=== PATIENT | female | born 1965 | race Caucasian/White ===

== ENCOUNTER 2016-08-06 16:40 | Inpatient (IN) | payer OTHER ==
[~2016-08-06] VITALS: Ht 160 cm; Wt 58.6 kg
[~2016-08-06 16:40] MED LIST: ADDERALL10 MG PO; ADVAIR HFA120 INHALA IH; AMLODIPINE BESY10 MG PO; AMLODIPINE BESYL5 MG PO; AMPHETAMINE SALT5 MG PO; ANAPROX DS550 M1 PO; ANTIHYPERTENSIVE PO; ATARAX,VISTARIL25 MG PO; ATARAX,VISTARIL50 MG PO; ATIVAN1 MG PO; AZITHROMYCIN250 MG1 PO; Aspirin E.C. PO; BACTRIM,SEPT1 TABLET PO; BP MEDICINE; BUSPAR10 MG PO; BUSPAR5 MG PO; CARBAMAZEPINE200 M1 PO; CIPRO250 MG PO; CITALOPRAM HBR10 MG PO; CLONAZEPAM0.5 MG PO; CYMBALTA30 MG PO; CYMBALTA60 MG PO; DOCUSATE SODIU100 MG PO; DOXEPIN HCL75 MG PO; ELIQUIS5 MG PO; ERGOCALCIF50000 UNIT PO; FLEXERIL10 MG PO; FLUOXETINE HCL10 MG PO; GABAPENTIN100 MG PO; GLIMEPIRIDE4 MG PO; Glucophage PO; HYDROCODON-ACE1 EAC7 PO; HYDROXYZINE HCL50 MG PO; KEFLEX500 MG PO; KLONOPIN0.5 M1 PO; KLONOPIN1 MG PO; KlonoPIN PO; LEVAQUIN500 MG PO; LIDOCAINE20 MG/1 M5 PO; LODINE200 MG PO; LORAZEPAM1 MG PO; MEDROL DOSEPAK4 MG PO; METFORMIN HCL500 MG PO; METOPROLOL SUCC25 MG PO; MIRTAZAPINE15 MG PO; MIRTAZAPINE45 MG PO; MYCOSTATIN 100,60 ML PO; NAPROSYN375 MG PO; NAPROSYN500 MG PO; NEURONTIN100 MG PO; NITROFURANTOIN100 M3 PO; NOHOMEMEDS; PANTOPRAZOLE SO40 MG PO; PAROXETINE HCL10 MG PO; PAROXETINE HCL40 MG PO; PAXIL20 MG PO; PAXIL30 MG PO; PAXIL40 MG PO; PERCOCET 5/31 TABLET PO; PREDNISONE50 MG PO; PRIMIDONE50 MG PO; PROAIR HFA8.5 GM IH; Paxil PO; Percocet 5/325,Endoc PO; Pravachol PO; Proventil,Ventolin H IH; QUETIAPINE FUM100 MG PO; QUETIAPINE FUMA25 MG PO; REMERON15 M2 PO; ROBITUSSIN AC,T10 ML PO; SEROQUEL XR150 MG PO; SEROQUEL100 MG PO; SEROQUEL200 MG PO; SEROquel PO; SIMVASTATIN40 MG PO; SINEQUAN25 MG PO; SPIRIVA RESPIMAT4 GM IH; THERAGRAN1 TABLET PO; TRAMADOL HCL50 MG PO; TRAZODONE HCL150 MG PO; Tears Naturale II,Ar BOTH EYES; VENLAFAXINE HCL75 M3 PO; VENTOLIN HFA18 GM IH; VICODIN,LORT1 TABLET PO; VITAMIN B-1100 MG PO; XANAX0.25 MG PO; ZESTORETIC 20-1 EAC1 PO; ZITHROMAX250 MG PO; ZOFRAN4 MG PO; [UNRECOGNIZED DRUG - REMARK] PO
[2016-08-06 20:14] VITALS: BP 102/58
[2016-08-08 13:19] VITALS: BP 117/67
[2016-08-09 19:31] VITALS: BP 118/57
[2016-08-10 15:54] VITALS: BP 146/79
[2016-08-10 18:38] VITALS: BP 139/75
[2016-08-11 07:51] VITALS: BP 137/79
[2016-08-11 15:10] VITALS: BP 144/70
[2016-08-12 09:58] VITALS: BP 129/97
[2016-08-13 07:38] VITALS: BP 133/60
[2016-08-13 15:52] VITALS: BP 116/58
[2016-08-14 09:13] VITALS: BP 110/59
[2016-08-14 15:45] VITALS: BP 105/56
[2016-08-15 15:35] VITALS: BP 125/73
[2016-08-16 07:57] VITALS: BP 116/60
[2016-08-16 16:01] VITALS: BP 136/76
[2016-08-17 08:06] VITALS: BP 113/56
[2016-08-17 16:07] VITALS: BP 132/67
[2016-08-17 17:30] LABS: POINT-OF-CARE METER ID UU13113830
[2016-08-18 07:54] VITALS: BP 130/68
[2016-08-18 15:37] VITALS: BP 128/63
[2016-08-19 15:32] VITALS: BP 154/64
[2016-08-20 07:54] VITALS: BP 129/60
[2016-08-20 15:25] VITALS: BP 98/53
[2016-08-21 09:07] VITALS: BP 97/53
[2016-08-22 07:51] VITALS: BP 107/59
[2016-08-22 15:37] VITALS: BP 110/53
[2016-08-23 07:52] VITALS: BP 101/53
[2016-08-23 15:40] VITALS: BP 139/71
[2016-08-24 09:02] VITALS: BP 103/56
[2016-08-24 15:42] VITALS: BP 119/63
[2016-08-25 07:57] VITALS: BP 99/57
[2016-08-25 11:32] VITALS: BP 131/72
[2016-08-26 15:59] VITALS: BP 112/61
[2016-08-27 07:43] VITALS: BP 104/57
[2016-08-27 16:08] VITALS: BP 127/69
[2016-08-28 07:55] VITALS: BP 111/61
[2016-08-28 15:38] VITALS: BP 118/59
[2016-08-29 08:05] VITALS: BP 120/61
[2016-08-29] MEDS ORDERED: LYRICA50 MG PO (09:40)
[2016-08-29] MEDS ORDERED: LORAZEPAM1 MG PO (09:40)
[2016-08-29] MEDS ORDERED: HALDOL5 MG PO (09:49)
== END 2016-08-29 13:55 | disposition home or self-care (01) | DRG 885 ==
LOC: EME 16:40 → 1WEST 18:16 → EDOF 18:16 → 1WEST 18:16
PROVIDERS: Psychiatry & Neurology Psychiatry
DX: F33.2 Major depressive disorder, recurrent severe without psychotic features (principal); R45.851 Suicidal ideations; N39.0 Urinary tract infection, site not specified; F60.7 Dependent personality disorder; G24.01 Drug induced subacute dyskinesia; G25.5 Other chorea; G62.9 Polyneuropathy, unspecified; I10 Essential (primary) hypertension; E11.9 Type 2 diabetes mellitus without complications; K21.9 Gastro-esophageal reflux disease without esophagitis; Z91.19 Patient's noncompliance with other medical treatment and regimen; Z59.0 Homelessness; Z86.711 Personal history of pulmonary embolism; Z79.01 Long term (current) use of anticoagulants; Z88.5 Allergy status to narcotic agent
CPT/HCPCS: 70450; 70551; 80048; 80053; 81003; 82550; 82553; 82948; 84999; 85025; 85027; 87077; 87086 GA; 87186; 90837; 90839; 93005; 97003 GO; 97150 GO; 99281; 99284; 99285; G0480; J0696; J1630; J2060; J3486

== ENCOUNTER 2016-08-31 10:55 | Emergency (ER) | payer OTHER ==
[~2016-08-31] VITALS: Ht 154.9 cm; Wt 63.6 kg
[~2016-08-31 10:55] MED LIST changes: +HALDOL5 MG PO; +LYRICA50 MG PO
[2016-08-31 15:00] VITALS: BP 148/89
== END 2016-08-31 16:14 | disposition home or self-care (01) ==
LOC: EME 10:55
DX: R45.851 Suicidal ideations (principal); J45.909 Unspecified asthma, uncomplicated; E11.9 Type 2 diabetes mellitus without complications; E78.5 Hyperlipidemia, unspecified; I25.2 Old myocardial infarction; Z86.711 Personal history of pulmonary embolism; Z96.641 Presence of right artificial hip joint; Z87.891 Personal history of nicotine dependence
CPT/HCPCS: 99281; 99284

== ENCOUNTER 2016-09-03 17:48 | Inpatient (IN) | payer OTHER ==
[~2016-09-03] VITALS: Ht 154.9 cm; Wt 56.1 kg
[2016-09-03 18:26] LABS: POINT-OF-CARE METER ID UU14100415
[2016-09-03 19:41] LABS: EOSINOPHIL (%) 0 % (0-5); HEMATOCRIT 40.8 % (36.0-46.0); IMMATURE GRANULOCYTE (%) 0.8 % (0.0-0.7); IMMATURE GRANULOCYTE COUNT 1.7 K/uL; LYMPHOCYTE COUNT 1.5 K/uL (1.0-2.8); MCH 29.4 PG (29.0-34.0); MCHC 34.3 G/DL (30.0-36.0); MCV 85.5 FL (83-99); MEAN PLAT.VOLUME 9.9 uM^3 (9.5-12.4); MONOCYTE (%) 4.5 % (3-12); NEUTROPHIL (%) 87.7 % (45-76); NEUTROPHIL COUNT 18.9 K/uL (1.8-6.4); PLATELET COUNT 340 K/uL (156-360); RBC DIS.WIDTH-CV 13.3 % (11.8-14.6); RED BLOOD COUNT 4.77 M/uL (3.80-5.20); WHITE BLOOD COUNT 21.6 K/uL (4.1-10.2)
[2016-09-03 19:51] LABS: CHLORIDE 97 mEq/L (99-109); POTASSIUM 4.5 mEq/L (3.7-5.4); SODIUM 134 mEq/L (136-147)
[2016-09-03 19:52] LABS: GLUCOSE 114 mg/dL (70-99)
[2016-09-03 19:54] LABS: ANION GAP 25 MEQ/L (2-14)
[2016-09-03 19:56] LABS: GFR ESTIMATE (CALCULATED) 36 mL/min/; SERUM ETHYL ALCOHOL < 10 mg/dL
[2016-09-03 19:57] LABS: UREA NITROGEN (BUN) 63 mg/dL (9-23)
[2016-09-03 20:04] LABS: TROP-I INTERPRETATION NEGATIVE; TROPONIN-I 0.02 ng/mL (0.0-0.30)
[2016-09-03 23:06] LABS: CREATINE KINASE 1443 IU/L (1-294)
[2016-09-03 23:54] LABS: ADD MIUA? YES; BILIRUBIN NEGATIVE; BLOOD MODERATE; COLOR YELLOW ((YELLOW)); GLUCOSE (STRIP) NEGATIVE; KETONES 40; LEUKOCYTES NEGATIVE; NITRITE NEGATIVE; PROTEIN (STRIP) TRACE; SPECIFIC GRAVITY 1.025 (1.000-1.030); UROBILINOGEN 0.2 MG/DL (0.2-1.0)
[2016-09-04 00:01] LABS: AMPHETAMINE NEGATIVE (500 ng/mL); BENZODIAZEPINES NEGATIVE (150 ng/mL); COCAINE NEGATIVE (150 ng/mL); METHAMPHETAMINE NEGATIVE (500 ng/mL); OPIATES (MORPHINE) NEGATIVE (100 ng/mL); PHENCYCLIDINE NEGATIVE (25 ng/mL); THC CANNABINOIDS NEGATIVE (50 ng/mL)
[2016-09-04 00:02] LABS: BARBITURATES NEGATIVE (200 ng/mL); INTERNAL CONTROLS VALID? YES; METHADONE NEGATIVE (200 ng/mL); OXYCODONE NEGATIVE (100 ng/mL); PROPOXYPHENE NEGATIVE (300 ng/mL); TRICYCLIC ANTIDEPRESSANTS NEGATIVE (300 ng/mL)
[2016-09-04 00:27] LABS: BACTERIA 1+; EPITHELIAL CELLS 1+; MUCUS NONE SEEN; RED BLOOD CELLS 0-5 /HPF (0-5); UCUL ADDED? NO; WHITE BLOOD CELLS NONE SEEN /HPF (0-5)
[2016-09-04 00:28] LABS: AMORPHOUS PHOSPHATE CRYSTALS 3+; CASTS PRESENT /LPF; CRYSTALS PRESENT; HYALINE CASTS 30-35 /LPF
[2016-09-04] MEDS ORDERED: AMLODIPINE BESYL5 MG PO (00:38)
[2016-09-04] MEDS ORDERED: ELIQUIS5 MG PO (00:38)
[2016-09-04] MEDS ORDERED: METFORMIN HCL500 MG PO (00:38)
[2016-09-04] MEDS ORDERED: SEROQUEL200 MG PO (00:39)
[2016-09-04] MEDS ORDERED: SEROQUEL100 MG PO (00:40)
[2016-09-04 07:07] LABS: HEMATOCRIT 36.2 % (36.0-46.0); MCH 29.2 PG (29.0-34.0); MCHC 34.3 G/DL (30.0-36.0); MCV 85.2 FL (83-99); MEAN PLAT.VOLUME 9.7 uM^3 (9.5-12.4); PLATELET COUNT 347 K/uL (156-360); RBC DIS.WIDTH-CV 13.5 % (11.8-14.6); RBC DIS.WIDTH-SD 41.1 % (39-53); RED BLOOD COUNT 4.25 M/uL (3.80-5.20); WHITE BLOOD COUNT 18.7 K/uL (4.1-10.2)
[2016-09-04 07:27] LABS: CHLORIDE 102 mEq/L (99-109); POTASSIUM 3.6 mEq/L (3.7-5.4); SODIUM 134 mEq/L (136-147)
[2016-09-04 07:30] LABS: GLUCOSE 108 mg/dL (70-99)
[2016-09-04 07:31] LABS: ANION GAP 17 MEQ/L (2-14); TOTAL BILIRUBIN 1.1 mg/dL (0.0-1.0)
[2016-09-04 07:33] LABS: ALKALINE PHOSPHATASE 104 IU/L (3-129)
[2016-09-04 07:34] LABS: UREA NITROGEN (BUN) 36 mg/dL (9-23)
[2016-09-04 07:35] LABS: DIRECT BILIRUBIN 0.3 mg/dL (0.0-0.3)
[2016-09-04 07:46] LABS: POINT-OF-CARE METER ID UU14100415
[2016-09-04 08:02] LABS: C-REACTIVE PROTEIN 72.4 MG/L (0-10); CREATINE KINASE 1252 IU/L (1-294); GFR ESTIMATE (CALCULATED) > 59 mL/min/; SAMPLE HEMOLYSIS CHECK 1; SAMPLE ICTERIC CHECK 0; SAMPLE LIPEMIA CHECK 0
[2016-09-04 12:40] LABS: POINT-OF-CARE METER ID UU14100415
[2016-09-04 17:43] LABS: C DIFF TOXIN POSITIVE (NEGATIVE)
[2016-09-04 17:44] LABS: PROBE CHECK PASS
[2016-09-04 18:40] LABS: CHLORIDE 109 mEq/L (99-109); POTASSIUM 4.3 mEq/L (3.7-5.4); SODIUM 138 mEq/L (136-147)
[2016-09-04 18:41] LABS: GLUCOSE 123 mg/dL (70-99)
[2016-09-04 18:43] LABS: ANION GAP 7 MEQ/L (2-14)
[2016-09-04 18:45] LABS: GFR ESTIMATE (CALCULATED) > 59 mL/min/
[2016-09-04 18:46] LABS: UREA NITROGEN (BUN) 21 mg/dL (9-23)
[2016-09-04 18:48] LABS: TOTAL CK 1355 IU/L (1-294)
[2016-09-04 18:56] LABS: CK-MB 14.8 ng/mL (0.0-4.9)
[2016-09-04 18:58] LABS: CREATINE KINASE 1355 IU/L (1-294)
[2016-09-04 19:17] LABS: POINT-OF-CARE METER ID UU14100415
[2016-09-04 22:26] LABS: POINT-OF-CARE METER ID UU13113725; POINT-OF-CARE USER ID 608261329
[2016-09-04 23:22] VITALS: BP 137/80
[2016-09-05 09:01] VITALS: BP 156/74
[2016-09-08 08:06] LABS: EOSINOPHIL (%) 1.1 % (0-5); EOSINOPHIL COUNT 0.1 K/uL (0-0.3); HEMATOCRIT 39.1 % (36.0-46.0); IMMATURE GRANULOCYTE (%) 0.7 % (0.0-0.7); IMMATURE GRANULOCYTE COUNT 0.1 K/uL; LYMPHOCYTE COUNT 2.3 K/uL (1.0-2.8); MCH 29.4 PG (29.0-34.0); MCHC 33.5 G/DL (30.0-36.0); MCV 87.9 FL (83-99); MEAN PLAT.VOLUME 10.3 uM^3 (9.5-12.4); MONOCYTE (%) 6.3 % (3-12); MONOCYTE COUNT 0.7 K/uL (0-0.8); NEUTROPHIL COUNT 7.2 K/uL (1.8-6.4); PLATELET COUNT 343 K/uL (156-360); RBC DIS.WIDTH-CV 13.4 % (11.8-14.6); RBC DIS.WIDTH-SD 42.9 % (39-53); RED BLOOD COUNT 4.45 M/uL (3.80-5.20); WHITE BLOOD COUNT 10.3 K/uL (4.1-10.2)
[2016-09-08 08:36] LABS: ANION GAP 10 MEQ/L (2-14); CHLORIDE 102 MEQ/L (99-109); CREATINE KINASE 55 IU/L (1-294); GLUCOSE 77 mg/dL (70-99); SAMPLE HEMOLYSIS CHECK 0; SAMPLE ICTERIC CHECK 0; SAMPLE LIPEMIA CHECK 0; SODIUM 141 MEQ/L (136-147); UREA NITROGEN (BUN) 4 mg/dL (9-23)
[2016-09-08 08:41] LABS: GFR ESTIMATE (CALCULATED) > 59 mL/min/; POTASSIUM 3.4 MEQ/L (3.7-5.4)
[2016-09-08 11:41] LABS: POINT-OF-CARE METER ID UU13113725
[2016-09-08 16:15] VITALS: BP 158/93
[2016-09-08 16:47] LABS: POINT-OF-CARE METER ID UU13113725
[2016-09-08 23:29] VITALS: BP 144/74
[2016-09-09 05:40] LABS: POINT-OF-CARE METER ID UU13113725
[2016-09-09 07:59] VITALS: BP 136/81
[2016-09-09 17:04] VITALS: BP 152/74
[2016-09-09 23:39] VITALS: BP 152/80
[2016-09-10 08:50] LABS: EOSINOPHIL (%) 1.2 % (0-5); EOSINOPHIL COUNT 0.1 K/uL (0-0.3); HEMATOCRIT 45.4 % (36.0-46.0); IMMATURE GRANULOCYTE (%) 1.6 % (0.0-0.7); IMMATURE GRANULOCYTE COUNT 0.1 K/uL; LYMPHOCYTE COUNT 2.8 K/uL (1.0-2.8); MCH 29.8 PG (29.0-34.0); MCHC 33.7 G/DL (30.0-36.0); MCV 88.3 FL (83-99); MEAN PLAT.VOLUME 10.4 uM^3 (9.5-12.4); MONOCYTE (%) 13.4 % (3-12); MONOCYTE COUNT 1.2 K/uL (0-0.8); NEUTROPHIL (%) 51.7 % (45-76); NEUTROPHIL COUNT 4.5 K/uL (1.8-6.4); PLATELET COUNT 370 K/uL (156-360); RBC DIS.WIDTH-CV 13.6 % (11.8-14.6); RBC DIS.WIDTH-SD 43.7 % (39-53); RED BLOOD COUNT 5.14 M/uL (3.80-5.20); WHITE BLOOD COUNT 8.6 K/uL (4.1-10.2)
[2016-09-10 08:51] VITALS: BP 159/82
[2016-09-10 09:42] LABS: ANION GAP 12 MEQ/L (2-14); CHLORIDE 101 MEQ/L (99-109); GFR ESTIMATE (CALCULATED) > 59 mL/min/; GLUCOSE 107 mg/dL (70-99); POTASSIUM 3.6 MEQ/L (3.7-5.4); SAMPLE ICTERIC CHECK 0; SAMPLE LIPEMIA CHECK 0; SODIUM 140 MEQ/L (136-147); UREA NITROGEN (BUN) 14 mg/dL (9-23)
[2016-09-10 21:19] LABS: POINT-OF-CARE METER ID UU13113725
[2016-09-11 06:15] LABS: POINT-OF-CARE METER ID UU13113725
[2016-09-11 16:07] LABS: POINT-OF-CARE METER ID UU13113725
[2016-09-11 16:23] VITALS: BP 126/86
[2016-09-12 08:00] VITALS: BP 120/68
[2016-09-12 15:50] VITALS: BP 117/79
[2016-09-12 16:33] LABS: ADD MIUA? YES; BILIRUBIN MODERATE; BLOOD NEGATIVE; COLOR BROWN ((YELLOW)); GLUCOSE (STRIP) NEGATIVE; ICTOTEST NEGATIVE; KETONES TRACE; LEUKOCYTES TRACE; NITRITE POSITIVE; PH, URINE 6.5 (5-8); PROTEIN (STRIP) NEGATIVE; SPECIFIC GRAVITY 1.026 (1.000-1.030); UROBILINOGEN 0.2 MG/DL (0.2-1.0)
[2016-09-12 16:39] LABS: POINT-OF-CARE METER ID UU13113725
[2016-09-12 17:03] LABS: RED BLOOD CELLS 0-5 /HPF (0-5)
[2016-09-12 17:04] LABS: BACTERIA 3+ /HPF; CASTS NONE SEEN /LPF; CRYSTALS NONE SEEN; EPITHELIAL CELLS RARE /HPF; MUCUS RARE /LPF
[2016-09-12 22:33] VITALS: BP 142/72
[2016-09-13 07:43] VITALS: BP 128/88
[2016-09-13 16:08] VITALS: BP 135/89
[2016-09-13 20:57] LABS: POINT-OF-CARE METER ID UU13113725
[2016-09-13 22:57] VITALS: BP 102/62
[2016-09-14 08:12] VITALS: BP 124/69
[2016-09-14 17:12] VITALS: BP 124/64
[2016-09-14 22:27] VITALS: BP 162/77
[2016-09-15 06:25] LABS: POINT-OF-CARE METER ID UU13113725
[2016-09-15 08:50] VITALS: BP 128/56
[2016-09-15 11:06] LABS: POINT-OF-CARE METER ID UU13113725
[2016-09-15 16:34] LABS: POINT-OF-CARE METER ID UU13113725
[2016-09-15 16:37] VITALS: BP 130/46
[2016-09-15 20:53] LABS: POINT-OF-CARE METER ID UU13113725
[2016-09-16 06:15] LABS: POINT-OF-CARE METER ID UU13113725
[2016-09-16 07:53] VITALS: BP 99/52
[2016-09-16 11:23] LABS: POINT-OF-CARE METER ID UU13113725
[2016-09-16 15:54] VITALS: BP 121/65
[2016-09-16 22:43] VITALS: BP 110/63
[2016-09-17 08:14] VITALS: BP 112/55
[2016-09-17 11:26] LABS: POINT-OF-CARE METER ID UU13113725
[2016-09-17 16:24] LABS: POINT-OF-CARE METER ID UU13113725
[2016-09-17 16:31] VITALS: BP 124/58
[2016-09-17 23:27] VITALS: BP 126/65
[2016-09-18 05:58] LABS: POINT-OF-CARE METER ID UU13113725
[2016-09-18 08:46] VITALS: BP 171/120
[2016-09-18 10:10] VITALS: BP 146/74
[2016-09-18] MEDS ORDERED: NOVOLOG PE100 UNITS/ SC (11:32)
[2016-09-18] MEDS ORDERED: PROPRANOLOL HCL10 MG PO (11:33)
[2016-09-18] MEDS ORDERED: METRONIDAZOLE500 MG PO (11:33)
[2016-09-18] MEDS ORDERED: PROZAC10 MG PO (11:34)
[2016-09-18] MEDS ORDERED: CLONAZEPAM0.5 MG PO (11:35)
== END 2016-09-18 13:09 | DRG 683 ==
LOC: EME 17:48 → EDOF 09-04 00:47 → 5EAST 09-04 00:47
PROVIDERS: Emergency Medicine; Hospitalist; Internal Medicine; Nurse Practitioner Adult Health
DX: N17.9 Acute kidney failure, unspecified (principal); M62.82 Rhabdomyolysis; B37.0 Candidal stomatitis; A04.7 Enterocolitis due to Clostridium difficile; R45.851 Suicidal ideations; F33.1 Major depressive disorder, recurrent, moderate; E86.0 Dehydration; E11.9 Type 2 diabetes mellitus without complications; Z86.711 Personal history of pulmonary embolism; I10 Essential (primary) hypertension; Z96.641 Presence of right artificial hip joint; K21.9 Gastro-esophageal reflux disease without esophagitis; Z59.0 Homelessness; F41.1 Generalized anxiety disorder; F60.7 Dependent personality disorder; R13.10 Dysphagia, unspecified; Z91.19 Patient's noncompliance with other medical treatment and regimen; G25.71 Drug induced akathisia; G24.01 Drug induced subacute dyskinesia
CPT/HCPCS: 70450; 71250; 74176; 80048; 80048 91; 80076; 81003; 82436; 82550; 82550 91; 82553; 82948; 83605; 84133; 84300; 84443; 84484; 85025; 85027; 85651; 86038; 86140; 87040; 87493; 92610 GN; 93005; 99281; 99285; G0480; J1815; J7030; S0030